=== PATIENT | female | born 1950 | race Caucasian/White ===

== ENCOUNTER → 2020-08-15 17:35 | Outpatient (CLI) | payer MEDICARE, BC, SELFPAY ==
--- NOTE | ~2020-08-15 | MR_ITS ---
EXAMINATION: [facility] EX[facility] DATE: 08/15/2020 18:40 INDICATION: Lumbar radiculopathy, low back pain. TECHNIQUE: Multi-sequential, multiplanar MR images of the lumbar spine were obtained without contrast . Sagittal T1, T2, T2 fat saturation images. Axial T2 weighted images. Comparison is made to prior examination from 08/05/2013. FINDINGS: There is moderate lumbar levoscoliosis. Moderate to severe disc disease L1-S2 and L5-S1, mo derate at the mid lumbar levels. Mild diffuse loss of lumbar vertebral body heights with mild edema i n the L1 and L2 levels, more on the concave side of the scoliosis, consistent with subacute component to these. There is 3 mm anterolisthesis L4 on L5. The conus medullaris terminates at the T12-L1 leve l and has normal signal intensity and morphology. Paraspinal soft tissue is unremarkable. Level by level evaluation: T12-L1: There is a mild diffuse disc bulge. Facet arthropathy: Mild. Neural foraminal stenosis: No stenosis. Central canal stenosis: No stenosis. L1-L2: There is a moderate diffuse disc bulge. Facet arthropathy: Moderate. Neural foraminal stenosis: Mild to moderate bilateral. Central canal stenosis: Mild to moderate. L2-L3: There is a moderate diffuse disc bulge. Facet arthropathy: Moderate. Neural foraminal stenosis: Moderate right, mild left. Central canal stenosis: Moderate. L3-L4: There is a mild to moderate diffuse disc bulge. Facet arthropathy: Moderate to severe right, moderate left. Neural foraminal stenosis: Moderate right, mild to moderate left. Central canal stenosis: Moderate to severe. L4-L5: There is a moderate diffuse disc bulge. Facet arthropathy: Moderate to severe right, moderate left. Neural foraminal stenosis: Moderate right, mild to moderate left. Central canal stenosis: Moderate to severe. L5-S1: There is a moderate diffuse disc bulge. Facet arthropathy: Moderate left, mild right. Neural foraminal stenosis: Moderate bilateral. Central canal stenosis: Moderate. There is been mild progression in the scoliosis and moderate progression of the spondylosis compared to 2013. IMPRESSION: 1. Moderate lumbar levoscoliosis with subacute appearing mild compressions at L1 and L2. 2. Moderate to severe lumbar spondylosis as above. Reviewed, dictated and finalized at location B. YTICAL STRATEGIST
== END ==
PROVIDERS: PCP Internal Medicine; Visit Provider Nurse Practitioner Adult Health
DX: M47.26 Other spondylosis with radiculopathy, lumbar region (principal)
CPT/HCPCS: 72148

== ENCOUNTER 2021-02-13 15:24 | Outpatient (CLI) | payer MEDICARE, BC, SELFPAY ==
--- NOTE | ~2021-02-13 | CT_ITS ---
EXAMINATION:CT lung screening DATE: 02/13/2021 15:53 INDICATION: Personal history of tobacco dependence. Current smoker with 32 pack year history. TECHNIQUE: Computed tomography (CT) of the chest was performed without intravenous contrast. Automate d exposure control and iterative reconstruction technique were employed. The dose-length product (DLP ) was 317.99 mGy-cm. COMPARISON: CT abdomen and pelvis 08/21/2017 FINDINGS: There is mild emphysema. There is mild atelectasis bilaterally. Calcified right lung nodule s and calcified right hilar lymph nodes are consistent with old granulomatous disease. No pleural eff usion. The heart size is normal. There are coronary artery calcifications. No pericardial effusion. P neumobilia is noted, likely secondary to sphincterotomy. Calcifications in the spleen are consistent with old granulomatous disease. There is thoracolumbar dextroscoliosis and severe spondylosis. IMPRESSION: 1. Lung-RADS category 1: Negative. Continue annual screening with noncontrast low-dose chest CT in 12 months. Reviewed, dictated and finalized at location A. IMPRESSION: 1. Lung-RADS category 1: Negative. Continue annual screening with noncontrast l ow-dose chest CT in 12 months.
== END 2021-02-13 15:25 | disposition home or self-care (01) ==
LOC: ANHIMG 15:28
PROVIDERS: PCP Internal Medicine; Visit Provider Internal Medicine
DX: Z87.891 Personal history of nicotine dependence (principal)
CPT/HCPCS: 71271

== ENCOUNTER 2022-01-11 15:31 | Outpatient (CLI) | payer MEDICARE, BC, SELFPAY ==
--- NOTE | 2022-01-11 15:42 | ECG_ITS ---
Measurements Intervals [place] Rate: 93 P: 52 VT: 152 QRS: -6 QRSD: 94 T: 24 QT: 355 QTc: 442 Interpretive Statements SINUS RHYTHM BORDERLINE R WAVE PROGRESSION, ANTERIOR LEADS BASELINE WANDER- III, AVR, AVL, AVF, V6 BORDERLINE ECG Electronically Signed On 01-11-2022 15:55:17 CDT by Ede Stearns D.O.
== END 2022-01-11 15:32 | disposition home or self-care (01) ==
PROVIDERS: PCP Internal Medicine; Visit Provider Internal Medicine
DX: I10 Essential (primary) hypertension (principal); R00.0 Tachycardia, unspecified
CPT/HCPCS: 93005

== ENCOUNTER → 2022-01-11 16:25 | Outpatient (CLI) | payer MEDICARE, BC, SELFPAY ==
--- NOTE | ~2022-01-11 | XR_ITS ---
XR lumbar spine 2-3V DATE: 01/11/2022 16:48 INDICATION: Back pain. Lumbar radiculopathy. TECHNIQUE: AP, lateral, coned lateral lumbosacral views COMPARISON: August 15, 2020 MRI lumbar spine FINDINGS: There is osteopenia. There is 23 degrees rotatory levoscoliosis measured from L2 to L3. There is degenerative spurring of the lower thoracic spine. There is severe degenerative disc disease at L1-2 with very prominent spurring and eburnation. There is moderately severe degenerative disc disease at L2-3,, L3-4 and L4-5. There is severe degenerative disc disease at L5-S1. There is prominent degenerative change at the apophyseal joints of the lumbar and lumbosacral spine, with associated minimal grade 1 anterolisthesis at L4-5. The sacroiliac joints are intact. Abdominal aortic calcification without apparent aneurysm. Calcification of the common iliac arteries. IMPRESSION: Rotatory levoscoliosis Mildly severe to severe degenerative disc disease throughout the lumbar spine and degenerative change at the apophyseal joints with associated minimal grade 1 anterolisthesis at L4-5 Reviewed, dictated and finalized at location A. IMPRESSION: Rotatory levoscoliosis Mildly severe to severe degenerative disc disease throughout the lumbar spine a nd degenerative change at the apophyseal joints with associated minimal grade 1 anterolisthesis at L4-5
== END ==
PROVIDERS: PCP Internal Medicine; Visit Provider Nurse Practitioner Family
DX: M54.16 Radiculopathy, lumbar region (principal); M41.86 Other forms of scoliosis, lumbar region; M51.36 Other intervertebral disc degeneration, lumbar region; M43.16 Spondylolisthesis, lumbar region
CPT/HCPCS: 72100

== ENCOUNTER → 2023-08-27 14:52 | Outpatient (CLI) | payer MEDICARE, BC, SELFPAY ==
--- NOTE | ~2023-08-27 | XR_ITS ---
XR lumbar spine min 4V DATE: 08/27/2023 15:32 INDICATION: Lumbar radiculopathy. No recent injury. TECHNIQUE: Standing AP and lateral views. Standing flexion and extension lateral views. COMPARISON: 01/11/2022 lumbar spine FINDINGS: Prominent osteopenia. 30 degrees levoscoliosis from L1 to L5. Chronic mild anterior wedging of T11. Degenerative spurring of the lower thoracic spine. Multilevel degenerative disc disease, particularly severe at L1-2 with virtual obliteration of disc s pace and very prominent eburnation as well as spurring. Moderate to moderately severe degenerative di sc disease is noted at the remainder of the lumbar spine. No instability is evident on flexion and extension lateral views. There is degenerative change at the apophyseal joints, particularly lower lumbar area, with associate d grade 1 anterolisthesis at L4-5. The sacroiliac joints are intact. There is calcification of the abdominal aorta without apparent aneurysm. IMPRESSION: Prominent osteopenia 30 degrees levoscoliosis of the lumbar spine Multilevel degenerative disc disease, particularly severe at L1-2 Reviewed, dictated and finalized at location B. OPERATOR
== END ==
PROVIDERS: PCP Nurse Practitioner Family; Visit Provider Nurse Practitioner Family
DX: M54.16 Radiculopathy, lumbar region (principal); M85.88 Other specified disorders of bone density and structure, other site; M51.36 Other intervertebral disc degeneration, lumbar region
CPT/HCPCS: 72110